=== PATIENT | female | born 1980 | race Caucasian/White ===

== ENCOUNTER 2017-06-30 09:53 | Outpatient (CLI) | payer OTHER | END 2017-06-30 09:54 | disposition home or self-care (01) | LOC: CTENTCT 09:53 | PROVIDERS: ATTEND Otolaryngology Plastic Surgery within the Head & Neck | DX: J32.9 Chronic sinusitis, unspecified (principal) | CPT/HCPCS: 70486 ==

== ENCOUNTER 2017-07-31 13:05 | Outpatient (CLI) | payer BC | END 2017-07-31 13:06 | disposition home or self-care (01) | LOC: BICRAD 13:05 | PROVIDERS: ATTEND Nurse Practitioner Family | DX: R06.02 Shortness of breath (principal) | CPT/HCPCS: 71046 ==